=== PATIENT | female | born 1985 | race Caucasian/White ===

== ENCOUNTER 2018-05-30 09:22 | Outpatient (CLI) | payer MEDICAID | END 2018-05-30 11:01 | disposition home or self-care (01) | LOC: OBT 09:22 → L-D 09:22 → OBT 11:01 | DX: O30.043 Twin pregnancy, dichorionic/diamniotic, third trimester (principal); Z3A.36 36 weeks gestation of pregnancy | CPT/HCPCS: 76818 ==

== ENCOUNTER 2018-06-05 17:39 | Outpatient (CLI) | payer MEDICAID ==
[2018-06-05 18:24] LABS: ADD MAN DIFF? NO
[2018-06-05 18:26] LABS: WHITE BLOOD COUNT 7.1 10^3/ul (4.8-10.8)
[2018-06-05 18:26] LABS: BASOPHILS % 0.3 % (0.0-2.0); EOSINOPHILS # 0.1 10^3/ul (0.0-0.5); EOSINOPHILS % 0.7 % (0.0-7.0); HEMATOCRIT 35.7 % (37.0-47.0); HEMOGLOBIN 11.9 g/dl (12.0-16.0); LYMPHOCYTES # 1.7 10^3/ul (0.8-2.9); LYMPHOCYTES % 23.4 % (15.0-51.0); MEAN CORPUSCULAR HEMOGLOBIN 31.3 pg (29.0-33.0); MEAN CORPUSCULAR HGB CONC 33.3 g/dl (32.0-37.0); MEAN CORPUSCULAR VOLUME 93.9 fl (82.0-101.0); MEAN PLATELET VOLUME 12.7 fl (7.4-10.4); MONOCYTE # 0.5 10^3/ul (0.3-0.9); MONOCYTES % 7.2 % (0.0-11.0); NEUTROPHIL # 4.8 10^3/ul (1.6-7.5); NEUTROPHILS % 67.7 % (39.0-77.0); PLATELET COUNT 128 10^3/UL (140-415); RED CELL DISTRIBUTION WIDTH 14.4 % (11.5-14.5)
[2018-06-05 18:44] LABS: ALANINE AMINOTRANSFERASE 19 IU/L (13-69); ALBUMIN 3.2 g/dl (3.3-4.9); ALKALINE PHOSPHATASE 253 IU/L (42-121); ANION GAP 8 (5-13); ASPARTATE AMINO TRANSFERASE 27 IU/L (15-46); BILIRUBIN,INDIRECT 0.9 mg/dl (0-1.1); BILIRUBIN,TOTAL 0.9 mg/dl (0.2-1.3); BLOOD UREA NITROGEN 11 mg/dl (7-20); CALCIUM 8.6 mg/dl (8.4-10.2); CARBON DIOXIDE 18 mmol/L (21-31); CHLORIDE 109 mmol/L (97-110); CREATININE 0.74 mg/dl (0.44-1.00); Estimated GFR > 60 mL/min (>60); GLUCOSE 121 mg/dl (70-220); POTASSIUM 3.7 mmol/L (3.5-5.1); SODIUM 135 mmol/L (135-144); TOTAL PROTEIN 6.4 g/dl (6.1-8.1)
[2018-06-05 19:35] LABS: ADD UMIC YES; UR ASCORBIC ACID 20 mg/dL (NEGATIVE); UR BACTERIA FEW /HPF (NONE SEEN); UR BILIRUBIN (Dip) NEGATIVE (NEGATIVE); UR BLOOD (Dip) NEGATIVE (NEGATIVE); UR CLARITY SLIGHTLY CLOUDY (CLEAR); UR COLOR AMBER (YELLOW); UR GLUCOSE (Dip) NEGATIVE (NEGATIVE); UR KETONES (Dip) TRACE mg/dL (NEGATIVE); UR LEUKOCYTE ESTERASE (Dip) TRACE Leu/ul (NEGATIVE); UR MUCUS FEW /HPF (NONE SEEN); UR NITRITE (Dip) NEGATIVE (NEGATIVE); UR RBC 3 /HPF (0-5); UR SPECIFIC GRAVITY (Dip) 1.026 (1.003-1.030); UR SQUAMOUS EPITHELIAL CELL MODERATE /HPF (FEW); UR TOTAL PROTEIN (Dip) 2+ mg/dl (NEGATIVE); UR UROBILINOGEN (Dip) 2+ mg/dL (NEGATIVE); UR WBC 6 /HPF (0-5)
== END 2018-06-05 23:32 | disposition home or self-care (01) ==
LOC: OBT 17:39 → L-D 17:40 → OBT 23:32
DX: O26.893 Other specified pregnancy related conditions, third trimester (principal); O30.043 Twin pregnancy, dichorionic/diamniotic, third trimester; Z3A.36 36 weeks gestation of pregnancy
CPT/HCPCS: 76818; 80053; 81001; 85025

== ENCOUNTER 2018-06-07 10:12 | Outpatient (CLI) | payer MEDICAID | END 2018-06-07 13:10 | disposition home or self-care (01) | LOC: OBT 10:12 → L-D 10:12 → OBT 13:10 | DX: O32.9XX0 Maternal care for malpresentation of fetus, unspecified, not applicable or unspecified (principal); O30.003 Twin pregnancy, unspecified number of placenta and unspecified number of amniotic sacs, third trimester; Z3A.36 36 weeks gestation of pregnancy | CPT/HCPCS: 76818 ==

== ENCOUNTER 2018-06-09 09:25 | Inpatient (IN) | payer SELFPAY, MEDICAID ==
[~2018-06-09 09:25] MED LIST: KETOROLAC 30 MG INJ
[2018-06-09] MEDS ORDERED: CARBOPROST 250 MCG INJ IM ×2 (11:00→22:00)
[2018-06-09] MEDS ORDERED: MISOPROSTOL 200 MCG TAB PR ×2 (11:00→22:00)
[2018-06-09] MEDS ORDERED: OXYTOCIN 30 UNITS/LR 500 ML IV ×2 (11:00→22:00)
[2018-06-09 11:07] LABS: ADD MAN DIFF? NO
[2018-06-09 11:08] LABS: WHITE BLOOD COUNT 6.4 10^3/ul (4.8-10.8)
[2018-06-09 11:08] LABS: BASOPHILS % 0.3 % (0.0-2.0); EOSINOPHILS # 0.1 10^3/ul (0.0-0.5); EOSINOPHILS % 0.8 % (0.0-7.0); HEMATOCRIT 36.3 % (37.0-47.0); HEMOGLOBIN 12.2 g/dl (12.0-16.0); LYMPHOCYTES # 1.4 10^3/ul (0.8-2.9); LYMPHOCYTES % 22.5 % (15.0-51.0); MEAN CORPUSCULAR HEMOGLOBIN 31.3 pg (29.0-33.0); MEAN CORPUSCULAR HGB CONC 33.6 g/dl (32.0-37.0); MEAN CORPUSCULAR VOLUME 93.1 fl (82.0-101.0); MEAN PLATELET VOLUME 12.9 fl (7.4-10.4); MONOCYTE # 0.4 10^3/ul (0.3-0.9); MONOCYTES % 6.8 % (0.0-11.0); NEUTROPHIL # 4.4 10^3/ul (1.6-7.5); NEUTROPHILS % 68.3 % (39.0-77.0); PLATELET COUNT 130 10^3/UL (140-415)
[2018-06-09 11:16] LABS: INR 0.83; PROTIME 11.5 Sec (11.9-14.9); PT RATIO 0.9
[2018-06-09 11:17] LABS: PARTIAL THROMBOPLASTIN TIME 28.3 Sec (23.0-35.0)
[2018-06-09] MEDS: LACTATED RINGER'S 1,000 ML IV ×2 (11:38→13:05)
[2018-06-09] MEDS ORDERED: MIDAZOLAM 1 MG/ML 2 ML INJ IV (17:00)
[2018-06-09] MEDS ORDERED: ONDANSETRON 4 MG INJ IV (17:00)
[2018-06-09] MEDS ORDERED: HYDROmorphONE 0.5 MG/0.5 ML SYG IV ×2 (17:00)
[2018-06-09] MEDS ORDERED: NALBUPHINE HCL (10 MG/1 ML) INJ IV (17:00)
[2018-06-09] MEDS ORDERED: MEPERIDINE 25 MG INJ IV (17:00)
[2018-06-09] MEDS ORDERED: ZOLPIDEM 5 MG TAB PO (17:00)
[2018-06-09] MEDS ORDERED: DIPHENHYDRAMINE 50 MG INJ IV (17:00)
[2018-06-09] MEDS ORDERED: NALOXONE (0.4 MG/ML) INJ IV (17:00)
[2018-06-09] MEDS ORDERED: morphine SULFATE/PF (10 MG/10 ML) INJ (17:15)
[2018-06-09] MEDS ORDERED: BUPIVACAINE 0.75%/DEXT (SPINAL) 2 ML INJ (17:16)
[2018-06-09 17:24] LABS: RAPID PLASMA REAGIN NONREACTIVE (NR)
[2018-06-09] MEDS ORDERED: METOCLOPRAMIDE 10 MG INJ (17:30)
[2018-06-09] MEDS ORDERED: LIDOCAINE 100 MG SYRINGE (17:30)
[2018-06-09] MEDS ORDERED: ONDANSETRON 4 MG INJ (17:30)
[2018-06-09] MEDS ORDERED: OXYTOCIN 10 UNIT INJ ×2 (17:57→18:02)
[2018-06-09] MEDS ORDERED: MIDAZOLAM 1 MG/ML 2 ML INJ (18:01)
[2018-06-09] MEDS ORDERED: EPHEDrine SULFATE 50 MG/5 ML SYG (18:16)
[2018-06-09] MEDS: METHYLERGONOVINE 0.2 MG INJ IM (18:32)
[2018-06-09] MEDS: CEFAZOLIN 2 GM/50 ML (PMX) 50 ML IVPB (18:32)
[2018-06-09] MEDS ORDERED: KETOROLAC 30 MG INJ (18:50)
[2018-06-09] MEDS: MISOPROSTOL 200 MCG TAB SL (19:14)
[2018-06-09] MEDS: DIPHENHYDRAMINE 50 MG INJ IV (19:46)
[2018-06-09] MEDS: KETOROLAC 30 MG INJ IV (21:22)
[2018-06-09] MEDS: OXYTOCIN 30 UNITS/LR 500 ML IV (21:33)
[2018-06-09] MEDS ORDERED: METHYLERGONOVINE 0.2 MG TAB PO (22:00)
[2018-06-09] MEDS ORDERED: METHYLERGONOVINE 0.2 MG INJ IM (22:00)
[2018-06-10] MEDS: OXYTOCIN 30 UNITS/LR 500 ML IV ×2 (00:13→01:53)
[2018-06-10] MEDS: LACTATED RINGER'S 1,000 ML IV ×3 (00:13→20:00)
[2018-06-10] MEDS: DEXTROSE 5%-LR 1,000 ML IV ×4 (00:14→21:50)
[2018-06-10 07:32] LABS: ADD MAN DIFF? NO
[2018-06-10 07:37] LABS: BASOPHILS % 0.2 % (0.0-2.0); EOSINOPHILS % 0.1 % (0.0-7.0); HEMATOCRIT 27.1 % (37.0-47.0); LYMPHOCYTES # 1.5 10^3/ul (0.8-2.9); LYMPHOCYTES % 13.7 % (15.0-51.0); MEAN CORPUSCULAR HEMOGLOBIN 31.1 pg (29.0-33.0); MEAN CORPUSCULAR HGB CONC 33.2 g/dl (32.0-37.0); MEAN CORPUSCULAR VOLUME 93.8 fl (82.0-101.0); MEAN PLATELET VOLUME 12.3 fl (7.4-10.4); MONOCYTE # 0.7 10^3/ul (0.3-0.9); MONOCYTES % 6.3 % (0.0-11.0); NEUTROPHIL # 8.8 10^3/ul (1.6-7.5); PLATELET COUNT 132 10^3/UL (140-415); RED BLOOD COUNT 2.89 10^6/ul (4.20-5.40); RED CELL DISTRIBUTION WIDTH 13.8 % (11.5-14.5)
[2018-06-10 07:37] LABS: WHITE BLOOD COUNT 11.1 10^3/ul (4.8-10.8)
[2018-06-10] MEDS: KETOROLAC 30 MG INJ IV ×2 (08:53→15:48)
[2018-06-10] MEDS: SENNA/DOCUSATE NA (8.6MG/50MG) TAB PO ×2 (08:53→22:11)
[2018-06-10] MEDS: LANOLIN 7 GM TUBE TOP (08:54)
[2018-06-10] MEDS ORDERED: DIPHTH/TET/ACEL PERTUSS (ADULT) 0.5 ML VIAL IM* (11:00)
[2018-06-10] MEDS: GUAIFENESIN/DM 5ML CUP PO ×2 (11:07→17:13)
[2018-06-10] MEDS: HYDROCODONE/APAP (5/325) TAB PO (17:13)
[2018-06-10] MEDS ORDERED: HYDROCODONE/APAP (5/325) TAB PO (17:35)
[2018-06-10] MEDS: IBUPROFEN 800 MG TAB PO (22:11)
[2018-06-11] MEDS: GUAIFENESIN 20 MG/ML 5ML CUP PO ×2 (01:49→08:26)
[2018-06-11] MEDS: HYDROCODONE/APAP (5/325) TAB PO ×3 (01:49→18:07)
[2018-06-11] MEDS: LACTATED RINGER'S 1,000 ML IV ×2 (04:00→12:00)
[2018-06-11] MEDS: IBUPROFEN 800 MG TAB PO ×3 (05:39→21:28)
[2018-06-11] MEDS: DEXTROSE 5%-LR 1,000 ML IV ×2 (05:50→12:47)
[2018-06-11] MEDS: URSODIOL 300 MG CAP PO ×3 (08:26→21:12)
[2018-06-11] MEDS: SENNA/DOCUSATE NA (8.6MG/50MG) TAB PO ×2 (08:26→21:12)
[2018-06-11] MEDS: hydrOXYzine HCL 10 MG TAB PO ×3 (10:01→21:12)
[2018-06-12] MEDS: HYDROCODONE/APAP (5/325) TAB PO ×2 (02:52→10:37)
[2018-06-12] MEDS: IBUPROFEN 800 MG TAB PO ×2 (05:36→14:56)
[2018-06-12] MEDS: DIPHTH/TET/ACEL PERTUSS (ADULT) 0.5 ML VIAL IM* (09:00)
[2018-06-12] MEDS ORDERED: MEASLES,MUMPS,RUBELLA VACCINE INJ SC* (09:00)
[2018-06-12] MEDS: URSODIOL 300 MG CAP PO ×2 (10:37→14:56)
[2018-06-12] MEDS: hydrOXYzine HCL 10 MG TAB PO ×2 (10:38→14:56)
[2018-06-12] MEDS: SENNA/DOCUSATE NA (8.6MG/50MG) TAB PO (10:38)
== END 2018-06-12 19:04 | disposition home or self-care (01) | DRG 786 ==
LOC: L-D 09:25 → PP1 22:39
PROC: 10D00Z1 Extraction of Products of Conception, Low, Open Approach (ICD-10-PCS; principal; 2018-06-09)
PROC: 3E033VJ Introduction of Other Hormone into Peripheral Vein, Percutaneous Approach (ICD-10-PCS; 2018-06-09)
DX: O30.003 Twin pregnancy, unspecified number of placenta and unspecified number of amniotic sacs, third trimester (principal); K83.1 Obstruction of bile duct; O26.62 Liver and biliary tract disorders in childbirth; O44.03 Complete placenta previa NOS or without hemorrhage, third trimester; Z3A.37 37 weeks gestation of pregnancy; Z37.2 Twins, both liveborn
CPT/HCPCS: 85025; 85610; 85730; 86592; 86850; 86900; 86901; 88307; 90686; 90715; 99464